=== PATIENT | male | born 1995 | race African-American/Black ===

== ENCOUNTER 2017-12-26 11:40 | Emergency (ER) | payer MEDICAID, OTHER ==
[~2017-12-26] VITALS: Ht 177.8 cm; Wt 63.3 kg
[2017-12-26 11:51] VITALS: BP 107/73
== END 2017-12-26 19:35 | disposition left against medical advice (07) ==
LOC: ER 15:38
DX: R21 Rash and other nonspecific skin eruption (principal); Z53.21 Procedure and treatment not carried out due to patient leaving prior to being seen by health care provider